=== PATIENT | female | born 1965 | race Caucasian/White ===

== ENCOUNTER 2021-10-27 17:12 | Emergency (ER) | payer OTHER, BC ==
[~2021-10-27] VITALS: Ht 162.6 cm; Wt 61.2 kg
[2021-10-27] MEDS ORDERED: HYDROCODON-ACE1 EA10 PO (19:41)
== END 2021-10-27 20:19 | disposition home or self-care (01) ==
LOC: ED 17:12
DX: S22.32XA Fracture of one rib, left side, initial encounter for closed fracture (principal); Z88.1 Allergy status to other antibiotic agents; W01.10XA Fall on same level from slipping, tripping and stumbling with subsequent striking against unspecified object, initial encounter
CPT/HCPCS: 71101; 99283-25; A9270

== ENCOUNTER 2022-12-02 06:07 | Emergency (ER) | payer BC ==
[~2022-12-02] VITALS: Ht 162.6 cm; Wt 65.8 kg
[~2022-12-02 06:07] MED LIST: HYDROCODON-ACE1 EA10 PO
[2022-12-02] MEDS ORDERED: OXYCODONE HCL5 MG PO (07:26)
[2022-12-02] MEDS ORDERED: ONDANSETRON ODT4 MG PO (07:26)
[2022-12-02] MEDS ORDERED: FLOMAX0.4 MG PO (07:26)
[2022-12-02 08:00] VITALS: BP 138/87
== END 2022-12-02 08:01 | disposition home or self-care (01) ==
LOC: ED 06:07
DX: N20.1 Calculus of ureter (principal); Z88.1 Allergy status to other antibiotic agents
CPT/HCPCS: 36415; 74176; 80053; 81001; 83690; 85025; 96374; 96375; 99284-25; A9270; J1885; J2270; J2405; J7030